=== PATIENT | male | born 1995 | race Caucasian/White ===

== ENCOUNTER → 2017-07-11 | Outpatient (CLI) | payer OTHER ==
[~2017-07-11] MED LIST: IOHEXOL 240 MG/ML 50ML VIAL. PO ONE; IOHEXOL 300 MG/ML 75 ML VIAL IV ONE
--- NOTE | 2017-07-12 08:56 | RAD ---
Examination: CT of the neck chest abdomen and pelvis were performed with IV contrast History: History of enlarged lymph nodes in the neck Comparison: None available Technique: Axial CT images of the neck, chest, abdomen and pelvis were performed with IV contrast. Coronal and sagittal reformats were performed. PQRS Compliance Statement: One or more of the following individualized dose reduction techniques were utilized for this examination: 1. Automated exposure control 2. Adjustment of the mA and/or kV according to patient size 3. Use of iterative reconstruction technique Findings: The visualized intracranial portion grossly appears unremarkable. The visualized bilateral parapharyngeal spaces, parotid glands, spd manager spaces grossly appears unremarkable. The bilateral submandibular glands grossly appears unremarkable. The bilateral vallecula, piriform sinuses, with focal cords, grossly appears unremarkable. Small bilateral cervical level 2 lymph nodes identified with the largest measuring 1.2 cm on the right. The lungs are clear. The visualized liver, spleen, adrenals grossly appears unremarkable. The stomach is mildly distended. The visualized pancreas grossly appears unremarkable. The small bowel is nondilated. No evidence of obvious enlarged retroperitoneal lymph nodes or pelvic lymph nodes identified. Feces and gas noted throughout the colon. Urinary bladder is mildly distended. The bilateral kidneys enhance symmetrically. Small sclerotic bone island identified in the left femoral head region. Noted likely significant mediastinal lymphadenopathy. No evidence of lytic bony destructive lesion. Impression: 1. No radiologically significant enlarged lymphadenopathy identified in the neck, chest, abdomen region. 2. Nonspecific minimal prominent appearing bilateral level 2 cervical lymph nodes.
== END ==
LOC: CT 15:48
PROVIDERS: ATTEND Internal Medicine Hematology & Oncology
DX: K31.89 Other diseases of stomach and duodenum (principal); N32.89 Other specified disorders of bladder
CPT/HCPCS: 70491; 71260; 74177; Q9966; Q9967